=== PATIENT | male | born 1970 | race American Indian/Alaskan Native ===

== ENCOUNTER 2020-08-24 16:51 | Emergency (ER) | payer MEDICARE ==
[2020-08-24 17:03] VITALS: BP 141/91
[2020-08-24 18:01] LABS: Bilirubin,Urine NEG (Negative); Blood,Urine NEG (Negative); Color,Urine Yellow (Yellow); Mucus,Urine 3+ /HPF
[2020-08-24] MEDS ORDERED: AZITHROMYCIN 250 MG TAB PO ONE (18:04)
[2020-08-24] MEDS ORDERED: LIDOCAINE-MPF (1%) 10 MG/1 ML VIAL 5 ML INFILTRATI ONE (18:04)
--- NOTE | 2020-08-24 18:23 | Emergency Department Report ---
ED Male HPI - General Chief complaint: Urogenital-Male Stated complaint: STD Time Seen by Provider: 08/24/20 17:00 Source: patient Mode of arrival: Ambulatory Limitations: No Limitations - History of Present Illness Initial comments: This is a 50-year-old male nontoxic, well nourished in appearance, no acute signs of distress presents to the ED with c/o of penile discharge times several days. Patient denies any testicular pain or swelling. Patient denies any penile ulcers or lesions. Patient denies any nausea, vomiting, chest pain, shortness of breathe, fever, chills, headache, back pain, numbness, tingling, stiff neck. Patient denies any urinary symptoms. MD Complaint: penile discharge -: days(s) Location: penis Radiation: none Severity scale (0 -10): 0 Improves with: none Worsens with: none discharge. denies: swelling, mass, rash, urinary retention, blood in urine, dysuria, fever, nausea/vomiting, incontinence - Related Data Home Medications Medication Instructions Recorded Confirmed Last Taken Ziprasidone [Geodon] 60 mg PO HS 06/27/14 06/27/14 06/26/14 hydrOXYzine PAMOATE [Vistaril] 50 mg PO Q6HR PRN 06/27/14 06/27/14 06/27/14 traZODone [Desyrel] 100 mg PO HS 06/27/14 06/27/14 06/26/14 Previous Rx's Medication Instructions Recorded Last Taken Type Promethazine /Codeine 5 ml PO Q6H PRN #120 [facility] [place] 04/14/14 Unknown Rx [Phenergan/Codeine 6.25-10 mg/5 ml] Allergies Allergy/AdvReac Type Severity Reaction Status Date / Time haloperidol [From Haldol] Allergy Unknown Unverified 03/25/16 09:48 haloperidol lactate Allergy Unknown Verified 08/24/20 18:07 [From Haldol] ED Review of Systems ROS: Stated complaint: STD Other details as noted in HPI Comment: All other systems reviewed and negative Constitutional: denies: chills, fever Eyes: denies: eye pain, eye discharge, vision change ENT: denies: ear pain, throat pain Respiratory: denies: cough, shortness of breath, wheezing Cardiovascular: denies: chest pain, palpitations Endocrine: no symptoms reported Gastrointestinal: denies: abdominal pain, nausea, diarrhea Genitourinary: discharge. denies: urgency, dysuria, frequency, hematuria, testicular pain, testicular mass Musculoskeletal: denies: back pain, joint swelling, arthralgia Skin: denies: rash, lesions Neurological: denies: headache, weakness, paresthesias Psychiatric: denies: anxiety, depression Hematological/Lymphatic: denies: easy bleeding, easy bruising ED Past Medical Hx - Past Medical History Previous Medical History?: Yes Hx Psychiatric Treatment: Yes Additional medical history: Bipolar, Anxiety, PTSD - Surgical History Past Surgical History?: No - Social History Smoking Status: Never Smoker Substance Use Type: Alcohol, Marijuana - Medications Home Medications: Home Medications Medication Instructions Recorded Confirmed Last Taken Type Promethazine /Codeine 5 ml PO Q6H PRN #120 [facility] 04/14/14 06/27/14 Unknown Rx [Phenergan/Codeine 6.25-10 mg/5 ml] Ziprasidone [Geodon] 60 mg PO HS 06/27/14 06/27/14 06/26/14 History hydrOXYzine PAMOATE [Vistaril] 50 mg PO Q6HR PRN 06/27/14 06/27/14 06/27/14 History traZODone [Desyrel] 100 mg PO HS 06/27/14 06/27/14 06/26/14 History ED Physical Exam - General Limitations: No Limitations General appearance: alert, in no apparent distress - Head Head exam: Present: atraumatic, normocephalic - Eye Eye exam: Present: normal appearance - Neck Neck exam: Present: normal inspection, full ROM - Respiratory Respiratory exam: Absent: respiratory distress - Cardiovascular Cardiovascular Exam: Present: regular rate - GI/Abdominal GI/Abdominal exam: Present: soft. Absent: distended, tenderness - Extremities Exam Extremities exam: Present: full ROM - Back Exam Back exam: Present: normal inspection, full ROM. Absent: tenderness, CVA tenderness (R), CVA tenderness (L), muscle spasm, paraspinal tenderness, vertebral tenderness, rash noted - Neurological Exam Neurological exam: Present: alert, oriented X3, normal gait - Psychiatric Psychiatric exam: Present: normal affect, normal mood - Skin Skin exam: Present: warm, dry, intact, normal color. Absent: rash ED Course Vital Signs 08/24/20 17:01 Temperature 98.7 F Pulse Rate 93 H Respiratory 18 Rate Blood Pressure 141/91 O2 Sat by Pulse 99 Oximetry - Reevaluation(s) Reevaluation #1: 08/24/20 18:24 Patient is speaking in full sentences with no signs of distress noted. ED Medical Decision Making - Lab Data Lab Results 08/24/20 Range/Units 17:34 Urine Color Yellow (Yellow) Urine Turbidity Slightly-cloudy (Clear) Urine pH 5.0 (5.0-7.0) Ur Specific [place] 1.024 (1.003-1.030) Urine Protein 30 mg/dl (Negative) mg/dL Urine Glucose (UA) Neg (Negative) mg/dL Urine Ketones Neg (Negative) mg/dL Urine Blood Neg (Negative) Urine Nitrite Neg (Negative) Urine Bilirubin Neg (Negative) Urine Urobilinogen 2.0 (<2.0) mg/dL Ur Leukocyte Esterase Lg (Negative) Urine WBC (Auto) 146.0 H (0.0-6.0) /HPF Urine RBC (Auto) 13.0 (0.0-6.0) /HPF U Epithel Cells (Auto) < 1.0 (0-13.0) /HPF Urine Mucus 3+ /HPF - Medical Decision Making 50-year-old male that presents with possible STD. Patient is stable and was examined by me. Rocephin and azithromycin has been ordered but patient did not answer. I tried calling patient with a phone number that was listed and the phone number was incorrect. I did not reexamine or see patient after my initial physical exam to let the patient know of the results and the importance of treatment. Patient eloped prior to receiving results. Critical care attestation.: If time is entered above; I have spent that time in minutes in the direct care of this critically ill patient, excluding procedure time. ED Disposition Clinical Impression: Possible exposure to STD Disposition: - ELOPED Is pt being admited?: No Condition: Undetermined Time of Disposition: 18:26
== END 2020-08-24 18:45 | disposition left against medical advice (07) ==
LOC: ED 16:51
DX: R36.9 Urethral discharge, unspecified (principal); Z20.2 Contact with and (suspected) exposure to infections with a predominantly sexual mode of transmission; F31.9 Bipolar disorder, unspecified; F12.10 Cannabis abuse, uncomplicated; Z79.899 Other long term (current) drug therapy; Z88.8 Allergy status to other drugs, medicaments and biological substances
CPT/HCPCS: 81001

== ENCOUNTER 2020-09-29 18:54 | Emergency (ER) | payer MEDICARE ==
--- NOTE | 2020-09-29 20:12 | Emergency Department Report ---
ED General Adult HPI - General Chief complaint: Medical Clearance Stated complaint: OUT OF PSYCH MEDS Time Seen by Provider: 09/29/20 20:04 Source: patient Mode of arrival: Ambulatory Limitations: No Limitations - History of Present Illness Initial comments: 50 yr old male with pmhx of bipolar disorder, generalized anxiety disorder, insomnia and PTSD presents to the ER today requesting refill on his psych medications. Patient states that he is visiting here from [place]. He came down yesterday to help his sister take care of his mom who has Alzheimer's. Is scheduled to return to [place] October 13. states that he has been out of his psych meds for about 5 months. He states that the doctor that was treating him in [place] apparently did not call in any of his meds, and he has been try to get a hold of someone in the office and so far has been unsuccessful. He states that the Covid pandemic also made it worse to get a hold of someone in the office. He states that he finally was able to get another doctor and has an appointment scheduled for October 15 in [place]. Patient states that he typically takes trazodone 100 mg at night. Vistaril 3 times a day as needed. Geodon 40 mg at night, and Wellbutrin 300 mg once a day. He denies any SI/HI or any hallucinations currently. He reports no symptoms at this time. Complaint: Ralf Medication refill -: month(s) (5) - Related Data Previous Rx's Medication Instructions Recorded Last Taken Type Promethazine /Codeine 5 ml PO Q6H PRN #120 [facility] 04/14/14 Unknown Rx [Phenergan/Codeine 6.25-10 mg/5 ml] Bupropion HCl [Wellbutrin XL] 300 mg PO DAILY #25 tab.er.24h 09/29/20 Unknown Rx Ziprasidone [Geodon] 40 mg PO QHS #25 capsule 09/29/20 Unknown Rx hydrOXYzine PAMOATE [Vistaril] 50 mg PO TID PRN #35 cap 09/29/20 Unknown Rx traZODone [Desyrel] 100 mg PO QHS #25 tab 09/29/20 Unknown Rx Allergies Allergy/AdvReac Type Severity Reaction Status Date / Time acetaminophen [From Tylenol] Allergy Angioedema Verified 09/29/20 19:54 haloperidol [From Haldol] Allergy Unknown Unverified 03/25/16 09:48 haloperidol lactate Allergy Unknown Verified 08/24/20 18:07 [From Haldol] ED Review of Systems ROS: Stated complaint: OUT OF PSYCH MEDS Other details as noted in HPI Comment: All other systems reviewed and negative Constitutional: denies: see HPI, chills, diaphoresis, malaise, weakness Eyes: denies: eye pain, eye discharge, vision change ENT: denies: ear pain, throat pain, dental pain, hearing loss, epistaxis, congestion Respiratory: denies: cough, shortness of breath, SOB with exertion, SOB at rest, stridor, wheezing Cardiovascular: denies: chest pain, palpitations Gastrointestinal: denies: abdominal pain, nausea, vomiting, diarrhea, constipation, hematemesis, melena, hematochezia Genitourinary: denies: urgency, dysuria Skin: denies: rash, lesions, change in color, change in hair/nails, pruritus Neurological: denies: headache, weakness, numbness, paresthesias, confusion, abnormal gait Psychiatric: denies: anxiety, depression, auditory hallucinations, visual hallucinations, homicidal thoughts, suicidal thoughts Hematological/Lymphatic: denies: easy bleeding, easy bruising ED Past Medical Hx - Past Medical History Hx Psychiatric Treatment: Yes Additional medical history: Bipolar, Anxiety, PTSD - Social History Smoking Status: Never Smoker - Medications Home Medications: Home Medications Medication Instructions Recorded Confirmed Last Taken Type Promethazine /Codeine 5 ml PO Q6H PRN #120 [facility] 04/14/14 06/27/14 Unknown Rx [Phenergan/Codeine 6.25-10 mg/5 ml] Bupropion HCl [Wellbutrin XL] 300 mg PO DAILY #25 tab.er.24h 09/29/20 Unknown Rx Ziprasidone [Geodon] 40 mg PO QHS #25 capsule 09/29/20 Unknown Rx hydrOXYzine PAMOATE [Vistaril] 50 mg PO TID PRN #35 cap 09/29/20 Unknown Rx traZODone [Desyrel] 100 mg PO QHS #25 tab 09/29/20 Unknown Rx ED Physical Exam - General Limitations: No Limitations General appearance: alert, in no apparent distress - Head Head exam: Present: atraumatic, normocephalic, normal inspection - Eye Eye exam: Present: normal appearance, PERRL, EOMI Pupils: Present: normal accommodation - ENT ENT exam: Present: normal exam, mucous membranes moist - Neck Neck exam: Present: normal inspection - Respiratory Respiratory exam: Present: normal lung sounds bilaterally. Absent: respiratory distress, wheezes, rales, rhonchi - Cardiovascular Cardiovascular Exam: Present: regular rate, normal rhythm, normal heart sounds - GI/Abdominal GI/Abdominal exam: Present: soft. Absent: distended, tenderness, guarding, rebound - Neurological Exam Neurological exam: Present: alert, oriented X3, CN II-XII intact, normal gait - Psychiatric Psychiatric exam: Present: normal affect, normal mood. Absent: homicidal ideation, suicidal ideation - Skin Skin exam: Present: intact ED Course Vital Signs 09/29/20 19:44 Temperature 98.0 F Pulse Rate 84 Respiratory 17 Rate Blood Pressure 149/103 O2 Sat by Pulse 100 Oximetry Critical care attestation.: If time is entered above; I have spent that time in minutes in the direct care of this critically ill patient, excluding procedure time. ED Disposition Clinical Impression: Medication refill Disposition: TO HOME OR SELFCARE Is pt being admited?: No Does the pt Need Aspirin: No Condition: Stable Instructions: Medicine Refill at the Emergency Department Additional Instructions: Get your medications filled and start taking as prescribed. It is important that you keep your appointment with your doctor on October 15. Return to the ER if any symptoms changes or worsens in any way. Prescriptions: traZODone [Desyrel] 100 mg PO QHS #25 tab Ziprasidone [Geodon] 40 mg PO QHS #25 capsule hydrOXYzine PAMOATE [Vistaril] 50 mg PO TID PRN #35 cap PRN Reason: Anxiety Bupropion HCl [Wellbutrin XL] 300 mg PO DAILY #25 tab.er.24h Referrals: PRIMARY CARE, [Referring] - 3-5 Days Time of Disposition: 20:17
[2020-09-30 05:04] VITALS: BP 132/78
== END 2020-09-29 20:45 | disposition home or self-care (01) ==
LOC: ED 18:54
DX: G30.9 Alzheimer's disease, unspecified (principal); F31.9 Bipolar disorder, unspecified; Z76.0 Encounter for issue of repeat prescription; Z79.899 Other long term (current) drug therapy; Z88.8 Allergy status to other drugs, medicaments and biological substances
CPT/HCPCS: 99282